=== PATIENT | female | born 1960 | race Caucasian/White ===

== ENCOUNTER 2021-03-11 06:22 | Outpatient (CLI) | payer OTHER ==
[2021-03-11 07:50] LABS: ALT (SGPT) 19 U/L (8-55); AST (SGOT) 21 U/L (5-34); Albumin 3.9 g/dL (3.5-5.0); Alkaline Phosphatase 100 U/L (40-110); Anion Gap 14 mmol/L (10-20); BUN (Urea Nitrogen) 9 mg/dL (9.8-20.1); Bilirubin, Total 0.6 mg/dL (0.2-1.2); Calc. Creatinine Clearance 0 mL/min (70-130); Calcium 9.5 mg/dL (7.8-10.44); Carbon Dioxide 24 mmol/L (22-29); Cardiac Risk 5.3 (Less than 4.5); Chloride 106 mmol/L (98-107); Cholesterol 240 mg/dl (< 200 Desired); Globulin 2.8 g/dL (2.4-3.5); Glucose 109 mg/dL (70-105); HDL Cholesterol 45 mg/dL (>60 Neg Risk); LDL Cholesterol, Calculated 169 mg/dL; Potassium 4.2 mmol/L (3.5-5.1); Protein, Total 6.7 g/dL (6.0-8.3); Sodium 140 mmol/L (136-145); Triglycerides 129 mg/dL (Less than 150)
[2021-03-11 11:37] LABS: Hemoglobin A1c 5.3 % (4.0-6.0)
[2021-03-11 12:51] LABS: Free T4 (Free Thyroxine) 0.95 ng/dL (0.70-1.48)
[2021-03-11 12:52] LABS: Vitamin D, 25 Hydroxy 51.2 ng/ml (> 30.0)
== END 2021-03-11 06:23 | disposition home or self-care (01) ==
LOC: MADLAB 06:22
PROVIDERS: ATTEND Internal Medicine Endocrinology, Diabetes & Metabolism
DX: E78.00 Pure hypercholesterolemia, unspecified (principal); E55.9 Vitamin D deficiency, unspecified; E03.9 Hypothyroidism, unspecified; R53.83 Other fatigue; R73.9 Hyperglycemia, unspecified
CPT/HCPCS: 36415; 80053; 80061; 82306; 83036; 84439; 84443; 84481

== ENCOUNTER 2021-07-07 06:38 | Outpatient (CLI) | payer OTHER ==
[2021-07-07 07:16] LABS: ALT (SGPT) 14 U/L (8-55); AST (SGOT) 17 U/L (5-34); Albumin 4.1 g/dL (3.5-5.0); Alkaline Phosphatase 94 U/L (40-110); Anion Gap 13 mmol/L (10-20); BUN (Urea Nitrogen) 10 mg/dL (9.8-20.1); Bilirubin, Total 0.4 mg/dL (0.2-1.2); Calc. Creatinine Clearance 0 mL/min (70-130); Calcium 9.3 mg/dL (7.8-10.44); Carbon Dioxide 26 mmol/L (22-29); Cardiac Risk 4.5 (Less than 4.5); Chloride 107 mmol/L (98-107); Cholesterol 223 mg/dl (< 200 Desired); Glucose 114 mg/dL (70-105); HDL Cholesterol 50 mg/dL (>60 Neg Risk); LDL Cholesterol, Calculated 145 mg/dL; Potassium 4.3 mmol/L (3.5-5.1); Protein, Total 7.1 g/dL (6.0-8.3); Sodium 142 mmol/L (136-145); Triglycerides 139 mg/dL (Less than 150)
[2021-07-07 07:46] LABS: Thyroid Stimulating Hormone 1.1226 uIU/mL (0.35-4.94)
[2021-07-07 13:24] LABS: Free T4 (Free Thyroxine) 1.08 ng/dL (0.70-1.48)
[2021-07-07 13:27] LABS: Vitamin D, 25 Hydroxy 61.1 ng/ml (> 30.0)
[2021-07-07 15:18] LABS: Hemoglobin A1c 5.5 % (4.0-6.0)
== END 2021-07-07 06:39 | disposition home or self-care (01) ==
LOC: MADLAB 06:38
PROVIDERS: ATTEND Internal Medicine Endocrinology, Diabetes & Metabolism
DX: E03.9 Hypothyroidism, unspecified (principal); E78.00 Pure hypercholesterolemia, unspecified; E55.9 Vitamin D deficiency, unspecified; R53.83 Other fatigue; R73.9 Hyperglycemia, unspecified
CPT/HCPCS: 36415; 80053; 80061; 82306; 83036; 84439; 84443; 84481

== ENCOUNTER 2021-10-21 06:35 | Outpatient (CLI) | payer OTHER ==
[2021-10-21 07:26] LABS: ALT (SGPT) 13 U/L (8-55); AST (SGOT) 17 U/L (5-34); Alkaline Phosphatase 88 U/L (40-110); Anion Gap 14 mmol/L (10-20); BUN (Urea Nitrogen) 11 mg/dL (9.8-20.1); Bilirubin, Total 0.5 mg/dL (0.2-1.2); Calc. Creatinine Clearance 0 mL/min (70-130); Calcium 9.2 mg/dL (7.8-10.44); Carbon Dioxide 24 mmol/L (22-29); Cardiac Risk 4.9 (Less than 4.5); Chloride 107 mmol/L (98-107); Cholesterol 252 mg/dl (< 200 Desired); Glucose 118 mg/dL (70-105); HDL Cholesterol 51 mg/dL (>60 Neg Risk); LDL Cholesterol, Calculated 174 mg/dL; Potassium 4.3 mmol/L (3.5-5.1); Sodium 141 mmol/L (136-145); Triglycerides 135 mg/dL (Less than 150)
[2021-10-21 11:17] LABS: Hemoglobin A1c 5.5 % (4.0-6.0)
[2021-10-21 11:52] LABS: Vitamin D, 25 Hydroxy 60.8 ng/ml (> 30.0)
[2021-10-21 16:18] LABS: Free T4 (Free Thyroxine) 0.79 ng/dL (0.70-1.48)
== END 2021-10-21 06:36 | disposition home or self-care (01) ==
LOC: MADLAB 06:35
PROVIDERS: ATTEND Internal Medicine Endocrinology, Diabetes & Metabolism
DX: E78.00 Pure hypercholesterolemia, unspecified (principal); E03.9 Hypothyroidism, unspecified; E55.9 Vitamin D deficiency, unspecified; R73.9 Hyperglycemia, unspecified; R53.83 Other fatigue
CPT/HCPCS: 36415; 80053; 80061; 82306; 83036; 84439; 84443; 84481

== ENCOUNTER 2022-10-06 18:27 | Emergency (ER) | payer OTHER ==
[2022-10-06] MEDS ORDERED: Morphine 4 MG/ML VIAL ONE (19:03)
[2022-10-06] MEDS ORDERED: Ondansetron PF 4 MG/2 ML Vial ONE (19:04)
[2022-10-06 19:24] LABS: #Basophils 0.1 thou/uL (0.0-0.2); #Eosinphils 0.2 thou/uL (0.0-0.7); #Monocytes 0.6 thou/uL (0.11-0.59); #Neutrophils 3.8 thou/uL (1.40-6.50); %Eosinophils 2.4 % (0.0-10.0); %Lymphocytes 29.8 % (21.0-51.0); %Monocytes 8.4 % (0.0-10.0); %Neutrophils 57.4 % (42.0-75.0); Hemoglobin 13.4 g/dL (12.0-16.0); Mean Corpuscular HGB CONC 33.3 g/dL (32.0-36.0); Mean Corpuscular Hemoglobin 30.4 pg (27.0-31.0); Mean Corpuscular Volume 91.3 fl (78.0-98.0); Mean Platelet Volume 8.4 fL (7.4-10.4); Platelet Count 213 10x3/uL (130-400); RBC Distribution Width 12.4 % (11.5-14.5); White Blood Cell (WBC) Count 6.6 10x3/uL (4.8-10.8)
[2022-10-06 19:29] LABS: Bilirubin Negative (Negative); Blood, Urine Negative (Negative); Glucose, Urine (Dipstick) Negative (Negative); Ketone, Urine Trace mg/dL (Negative); Leukocyte Large (Negative); Nitrite Negative (Negative); Protein, Urine (Dipstick) Negative (Neg-Trace); Urobilinogen 0.2 mg/dL (Less than 2); pH, Urine 5.5 (5.0-9.0)
[2022-10-06 19:30] LABS: Clarity Hazy (Clear)
[2022-10-06 19:31] LABS: INR-International Normal Ratio 0.9; Prothrombin Time 12.8 sec (12.0-14.7)
[2022-10-06 19:31] LABS: Bacteria/HPF 2+ HPF (None Seen); RBC/HPF 0-3 HPF (0-3); WBC/HPF Greater Than 50 HPF (0-3)
[2022-10-06] MEDS ORDERED: Bacitracin 1 PK ONE (19:37)
[2022-10-06 19:42] LABS: ALT (SGPT) 17 U/L (8-55); AST (SGOT) 21 U/L (5-34); Albumin 4.1 g/dL (3.5-5.0); Alkaline Phosphatase 84 U/L (40-110); Anion Gap 17 mmol/L (10-20); BUN (Urea Nitrogen) 20 mg/dL (9.8-20.1); Bilirubin, Total 0.4 mg/dL (0.2-1.2); Calc. Creatinine Clearance 0 mL/min (70-130); Calcium 9.1 mg/dL (7.8-10.44); Carbon Dioxide 20 mmol/L (22-29); Chloride 107 mmol/L (98-107); Estimated GFR 65; Globulin 2.6 g/dL (2.4-3.5); Glucose 169 mg/dL (70-105); Protein, Total 6.7 g/dL (6.0-8.3); Sodium 140 mmol/L (136-145)
[2022-10-06] MEDS ORDERED: cefTRIAXone (ROCEPHIN) 1 GM VIAL ONE (20:50)
[2022-10-06] MEDS ORDERED: Sodium Chloride 0.9% 100 ML ONE (20:50)
== END 2022-10-06 21:35 | disposition home or self-care (01) ==
LOC: MADERS 18:27
DX: N10 Acute pyelonephritis (principal); S20.212A Contusion of left front wall of thorax, initial encounter; Z87.891 Personal history of nicotine dependence; X58.XXXA Exposure to other specified factors, initial encounter
CPT/HCPCS: 71250; 74177; 80053; 81003; 81015; 85025; 85610; 85730; 96365; 96375; J0696; J2270; J2405; J3490

== ENCOUNTER 2025-03-14 06:44 | Outpatient (CLI) | payer OTHER ==
[2025-03-14 09:07] LABS: ALT (SGPT) 13 U/L (Less than 34); AST (SGOT) 23 U/L (11-34); Albumin 4.1 g/dL (3.1-4.5); Alkaline Phosphatase 102 U/L (40-110); Anion Gap 16 mmol/L (10-20); BUN (Urea Nitrogen) 12 mg/dL (9.8-20.1); Bilirubin, Total 0.5 mg/dL (0.3-1.2); Calc. Creatinine Clearance 0 mL/min (70-130); Calcium 9.1 mg/dL (7.8-10.44); Carbon Dioxide 24 mmol/L (23-31); Cardiac Risk 3.3 (Less than 4.5); Chloride 104 mmol/L (98-107); Cholesterol 173 mg/dl (< 200 Desired); Globulin 3.2 g/dL (2.4-3.5); Glucose 117 mg/dL (80-115); HDL Cholesterol 52 mg/dL (>60 Neg Risk); LDL Cholesterol, Calculated 96 mg/dL; Potassium 4.3 mmol/L (3.5-5.1); Sodium 140 mmol/L (136-145); Triglycerides 124 mg/dL (Less than 150)
[2025-03-14 13:11] LABS: Vitamin D, 25 Hydroxy 55.2 ng/ml (> 30.0)
[2025-03-14 13:16] LABS: Free T4 (Free Thyroxine) 1.2 ng/dL (0.70-1.48)
== END 2025-03-14 06:45 | disposition home or self-care (01) ==
LOC: MADLAB 06:44
PROVIDERS: ATTEND Internal Medicine Endocrinology, Diabetes & Metabolism
DX: E03.9 Hypothyroidism, unspecified (principal); E55.9 Vitamin D deficiency, unspecified; E78.00 Pure hypercholesterolemia, unspecified; E88.810 Metabolic syndrome; R53.83 Other fatigue; R73.9 Hyperglycemia, unspecified
CPT/HCPCS: 36415; 80053; 80061; 82306; 83036; 84439; 84443; 84481